=== PATIENT | male | born 1970 | race Hispanic/Latino ===

== ENCOUNTER 2022-12-16 07:03 | Emergency (ER) | payer BC ==
[~2022-12-16] VITALS: Ht 170.2 cm; Wt 97.5 kg
[2022-12-16] MEDS ORDERED: KETOROLAC TROMETHAMINE 30 MG/ML VIAL IV STA (07:54)
[2022-12-16] MEDS ORDERED: KETOROLAC TROMETHAMINE 30 MG/ML VIAL ONE (08:26)
[2022-12-16 09:21] VITALS: BP 127/88
== END 2022-12-16 09:27 | disposition home or self-care (01) ==
LOC: FSED 07:18
DX: R07.9 Chest pain, unspecified (principal); K21.9 Gastro-esophageal reflux disease without esophagitis; K80.20 Calculus of gallbladder without cholecystitis without obstruction; I73.9 Peripheral vascular disease, unspecified; I10 Essential (primary) hypertension; K76.9 Liver disease, unspecified
CPT/HCPCS: 71250; 80048; 80076; 81003; 82553; 84484; 85025; 93005; 99284; J1885

== ENCOUNTER 2025-06-28 18:12 | Emergency (ER) | payer SELFPAY ==
[~2025-06-28] VITALS: Ht 172.7 cm; Wt 97.5 kg
[2025-06-28 18:46] LABS: BASOPHILS % 0.6 % (0.0-1.0); EOSINOPHILS % 3.5 % (0.0-6.0); LYMPHOCYTES % 35.2 % (18.0-39.1); MONOCYTES % 6.6 % (4.4-11.3); NEUTROPHILS % 53.8 % (38.7-80.0); RED CELL DISTRIBUTION WIDTH 13.8 % (11.7-14.4)
[2025-06-28 18:54] VITALS: TEMP 98.4
[2025-06-28 18:55] LABS: AMPHETAMINES SCREEN,URINE NEGATIVE (NEGATIVE); CANNABINOIDS SCREEN,URINE NEGATIVE (NEGATIVE); COCAINE SCREEN,URINE NEGATIVE (NEGATIVE); METHADONE SCREEN, URINE NEGATIVE (NEGATIVE); OPIATES SCREEN,URINE NEGATIVE (NEGATIVE)
[2025-06-28 19:01] LABS: INR 0.91
[2025-06-28 19:09] LABS: EST GLOMERULAR FILTRATION RATE 95.0 ML/MIN (>=60)
[2025-06-28 19:19] LABS: ETHANOL 262.5 mg/dL (0.0-10.0)
[2025-06-28 21:07] VITALS: PULSE 74; RESP 21
[2025-06-28 21:40] VITALS: BP 134/84; PULSE 72; RESP 17; TEMP 97.5; O2SAT 96
== END 2025-06-28 21:51 | disposition home or self-care (01) ==
LOC: ER 18:16
DX: R42 Dizziness and giddiness (principal); R07.89 Other chest pain; F10.129 Alcohol abuse with intoxication, unspecified; I10 Essential (primary) hypertension; I73.9 Peripheral vascular disease, unspecified; B19.20 Unspecified viral hepatitis C without hepatic coma
CPT/HCPCS: 36415; 71045; 80053; 80307; 80320; 82550; 83690; 83880; 84484; 85025; 85610; 85730; 93005; 99284